=== PATIENT | female | born 1955 | race Caucasian/White ===

== ENCOUNTER 2022-11-16 06:00 | Emergency (ER) | payer MEDICARE, OTHER ==
[2022-11-16 06:42] LABS: BASOPHILS PERCENT AUTO 0.4 % (0.2-1.2); C-REACTIVE PROTEIN 0.52 mg/dL (<=0.30); CALCIUM 9.9 mg/dL (8.5-10.1); CREATININE 1.2 mg/dL (0.55-1.02); EOSINOPHILS ABSOLUTE AUTO 0.1 x10^3/uL (0.0-0.5); EOSINOPHILS PERCENT AUTO 2.8 % (0.0-4.0); EST CRCL DRUG DOSING (CG) 44.85 mL/min; HEMATOCRIT 39.5 % (33.0-47.0); IMMATURE GRAN ABSOLUTE AUTO 0.01 x10^3/uL (0.00-0.07); LYMPHOCYTES ABSOLUTE AUTO 1.9 x10^3/uL (1.0-4.8); LYMPHOCYTES PERCENT AUTO 41.2 % (25.0-50.0); MEAN CORPUSCULAR HEMOGLOBIN 29.1 pg (26.0-32.0); MEAN CORPUSCULAR HGB CONC 32.9 g/dL (32.0-36.0); MEAN CORPUSCULAR VOLUME 88.4 fL (78.0-93.0); MONOCYTES ABSOLUTE AUTO 0.3 x10^3/uL (0.0-0.8); MONOCYTES PERCENT AUTO 6.5 % (2.0-11.0); NEUTROPHILS ABSOLUTE AUTO 2.2 x10^3/uL (1.8-7.7); NEUTROPHILS PERCENT AUTO 48.9 % (50.0-80.0); PLATELET COUNT,PLT 186 x10^3/uL (130-400); POTASSIUM,K 4.5 mmol/L (3.5-5.1); RED BLOOD CELL COUNT 4.47 x10^6/uL (4.00-5.50); WHITE BLOOD CELL COUNT,WBC 4.6 x10^3/uL (4.0-10.0)
[2022-11-16 06:47] LABS: ANION GAP 10.5 mmol/L (5-15)
== END 2022-11-16 07:25 | disposition home or self-care (01) ==
LOC: VM.ED 06:00
DX: R79.89 Other specified abnormal findings of blood chemistry (principal); Z88.0 Allergy status to penicillin; Z91.048 Other nonmedicinal substance allergy status
CPT/HCPCS: 36415; 80048; 85025; 85379; 86140; 93971-RT; 99283; 99284